=== PATIENT | female | born 1965 | race Caucasian/White ===

== ENCOUNTER 2025-01-20 11:42 | Outpatient (CLI) | payer MEDICAID, SELFPAY | END 2025-01-20 11:43 | disposition home or self-care (01) | LOC: MOBLMAM 11:45 | PROVIDERS: PCP Emergency Medicine Emergency Medical Services; Visit Provider Emergency Medicine Emergency Medical Services | DX: Z12.31 Encounter for screening mammogram for malignant neoplasm of breast (principal) | CPT/HCPCS: 77063; 77067 ==